=== PATIENT | female | born 1990 | race Caucasian/White ===

== ENCOUNTER 2018-01-20 20:09 | Inpatient (IN) | payer OTHER ==
[~2018-01-20] VITALS: Ht 160 cm; Wt 64.4 kg
== END 2018-01-21 13:55 | disposition home or self-care (01) | DRG 833 ==
LOC: ER 20:09 → LDR 22:40
PROC: BT4JZZZ Ultrasonography of Kidneys and Bladder (ICD-10-PCS; principal; 2018-01-20)
PROC: BY4DZZZ Ultrasonography of Second Trimester, Multiple Gestation (ICD-10-PCS; 2018-01-20)
PROC: 4A1HXCZ Monitoring of Products of Conception, Cardiac Rate, External Approach (ICD-10-PCS; 2018-01-20)
DX: O26.892 Other specified pregnancy related conditions, second trimester (principal); O99.612 Diseases of the digestive system complicating pregnancy, second trimester; G43.809 Other migraine, not intractable, without status migrainosus; Z34.82 Encounter for supervision of other normal pregnancy, second trimester

== ENCOUNTER 2018-01-27 12:02 | Outpatient (CLI) | payer OTHER | END 2018-01-27 15:56 | disposition home or self-care (01) | LOC: RAD 12:02 | DX: J90 Pleural effusion, not elsewhere classified (principal) ==

== ENCOUNTER 2018-04-17 21:09 | Outpatient (CLI) | payer OTHER ==
[2018-04-17] MEDS ORDERED: PRENATAL TABLE1 EACH PO (21:52)
[2018-04-17] MEDS ORDERED: CHILDREN'S ASPI81 MG PO (21:52)
[2018-04-17] MEDS ORDERED: IRON325 MG PO (21:52)
[2018-04-17] MEDS ORDERED: ASPIR 8181 MG PO (21:53)
== END 2018-04-18 10:30 | disposition home or self-care (01) ==
LOC: OBS/DEL 21:09
DX: O16.3 Unspecified maternal hypertension, third trimester (principal); Z34.83 Encounter for supervision of other normal pregnancy, third trimester; O36.5932 Maternal care for other known or suspected poor fetal growth, third trimester, fetus 2; O30.093 Twin pregnancy, unable to determine number of placenta and number of amniotic sacs, third trimester

== ENCOUNTER 2018-04-23 11:08 | Inpatient (IN) | payer OTHER ==
[~2018-04-23] VITALS: Ht 160 cm; Wt 2701.0 kg
[~2018-04-23 11:08] MED LIST: ASPIR 8181 MG PO; CHILDREN'S ASPI81 MG PO; IRON325 MG PO; PRENATAL TABLE1 EACH PO
== END 2018-04-26 18:20 | disposition home or self-care (01) | DRG 786 ==
LOC: LDR 11:08 → OB/GYN 11:08 → O/R 14:23 → OB/GYN 17:14
PROVIDERS: ADMIT Specialist
PROC: 4A1HXCZ Monitoring of Products of Conception, Cardiac Rate, External Approach (ICD-10-PCS; 2018-04-23)
PROC: 10D00Z1 Extraction of Products of Conception, Low, Open Approach (ICD-10-PCS; principal; 2018-04-23 14:00)
DX: O32.1XX1 Maternal care for breech presentation, fetus 1 (principal); O60.14X2 Preterm labor third trimester with preterm delivery third trimester, fetus 2; O30.093 Twin pregnancy, unable to determine number of placenta and number of amniotic sacs, third trimester; Z3A.36 36 weeks gestation of pregnancy; Z37.2 Twins, both liveborn